=== PATIENT | female | born 1990 | race Two or more races ===

== ENCOUNTER 2021-07-06 13:13 | Emergency (ER) | payer OTHER ==
[~2021-07-06] VITALS: Ht 160 cm; Wt 54.0 kg
[2021-07-06] MEDS ORDERED: PRENA1 CHEW TA1.4 MG PO (14:02)
== END 2021-07-06 16:05 | disposition home or self-care (01) ==
LOC: ER 13:13
DX: U07.1 COVID-19 (principal)

== ENCOUNTER 2021-10-18 18:52 | Inpatient (IN) | payer OTHER ==
[~2021-10-18] VITALS: Ht 160 cm; Wt 61.2 kg
[~2021-10-18 18:52] MED LIST: PRENA1 CHEW TA1.4 MG PO
== END 2021-10-21 19:32 | disposition home or self-care (01) | DRG 807 ==
LOC: OB/GYN 18:52 → LDR 18:52 → OB/GYN 10-20 10:31
PROVIDERS: ADMIT Obstetrics & Gynecology; ATTEND Obstetrics & Gynecology
PROC: 4A1HXCZ Monitoring of Products of Conception, Cardiac Rate, External Approach (ICD-10-PCS; 2021-10-18)
PROC: 10E0XZZ Delivery of Products of Conception, External Approach (ICD-10-PCS; principal; 2021-10-19)
PROC: 0W8NXZZ Division of Female Perineum, External Approach (ICD-10-PCS; 2021-10-19)
DX: O80 Encounter for full-term uncomplicated delivery (principal); Z37.0 Single live birth; Z3A.39 39 weeks gestation of pregnancy; Z20.822 Contact with and (suspected) exposure to COVID-19

== ENCOUNTER → 2023-09-12 | Day surgery (SDC) | payer OTHER ==
[~2023-09-12] VITALS: Ht 160 cm; Wt 46.3 kg
[~2023-09-12] MED LIST changes: +KETOROLAC TROMETHAMINE 60 MG VIAL IM STA; +METHYLERGONOVINE MALEATE 0.2 MG/ML AMPUL IJ ONE; +POVIDONE-IODINE 118 ML BOTT TOP ONE; +RINGERS SOLUTION,LACTATED 1,000 ML IV SCH
--- NOTE | 2023-09-12 11:36 | NUR ---
PTE ALERTA Y ORIENTADA X3 REFIERE QUE FUE ENVIADA POR EL DR. CARLOS PARA REALIZAR RASPE. SE MIDEN S/V Y SE UBICA.
--- NOTE | 2023-09-12 11:54 | NUR ---
SE EDUCA PACIENTE SOBRE EL TX MEDICO Y ESTA REFIERE ENTENDER. SE NEERAJ MUESTRAS DE LABORATORIOS Y SE ENVIAN. SE CANALIZA Y SE COLOCA IVFS. PENDIENTE A U/A
[2023-09-12 12:03] LABS: HEMATOCRIT 39.1 % (36.0-45.00); HEMOGLOBIN 13.8 g/dL (12.0-15.00); MEAN CELL VOLUME 89.3 fL (80.00-100.00); MEAN CORPUSCULAR HEMOGLOBIN 31.5 pg (27.00-32.0); MEAN CORPUSCULAR HGB CONC 35.3 g/dl (32.0-36.0); PLATELET COUNT 248 K/uL (150-450); RED BLOOD COUNT 4.38 M/uL (4.00-6.00)
[2023-09-12 12:27] LABS: URINE APPEARANCE Cloudy; URINE BILIRRUBIN Negative (NEGATIVE); URINE BLOOD Negative; URINE COLOR Yellow; URINE GLUCOSE Negative (NEGATIVE); URINE LEUKOCYTE Small; URINE NITRATE Negative; URINE PROTEIN Negative (NEGATIVE); URINE UROBILINOGEN 0.2 E.U./dl
[2023-09-12 12:31] LABS: URINE BACTERIA 3282.2 uL (0.0-1933); URINE EPITHELIAL CELLS 59.3 uL (0.0-38.8); URINE WBC 118.5 uL (0.0-23.2)
[2023-09-12 12:52] LABS: INR 1.01; PARTIAL THROMBOPLASTIN TIME 27.9 SECONDS (22.0-34.0); PROTHROMBIN TIME 10.6 SECONDS (9.0-11.5)
== END | disposition home or self-care (01) ==
LOC: EDSTATUS 10:48 → ER 10:48 → CIR.AMB 16:41 → O/R 16:41 → ER 16:41 → CIR.AMB 16:41 → SEC-K 16:41 → O/R 17:14
PROVIDERS: Obstetrics & Gynecology; ATTEND General Practice
DX: O02.1 Missed abortion (principal)

== ENCOUNTER 2024-05-30 14:22 | Outpatient (CLI) | payer OTHER ==
[~2024-05-30 14:22] MED LIST changes: -KETOROLAC TROMETHAMINE 60 MG VIAL IM STA; -METHYLERGONOVINE MALEATE 0.2 MG/ML AMPUL IJ ONE; -POVIDONE-IODINE 118 ML BOTT TOP ONE; -RINGERS SOLUTION,LACTATED 1,000 ML IV SCH
== END 2024-05-30 14:23 | disposition home or self-care (01) ==
LOC: PRENATAL 14:22
PROVIDERS: ATTEND Obstetrics & Gynecology Maternal & Fetal Medicine
DX: O44.00 Complete placenta previa NOS or without hemorrhage, unspecified trimester (principal); Z3A.19 19 weeks gestation of pregnancy

== ENCOUNTER → 2024-08-29 12:46 | Outpatient (CLI) | payer OTHER | END | disposition home or self-care (01) | LOC: PRENATAL 12:46 | PROVIDERS: ATTEND Obstetrics & Gynecology Maternal & Fetal Medicine | DX: O26.849 Uterine size-date discrepancy, unspecified trimester (principal); O36.8199 Decreased fetal movements, unspecified trimester, other fetus; Z3A.33 33 weeks gestation of pregnancy ==

== ENCOUNTER 2024-10-01 14:36 | Outpatient (CLI) | payer OTHER ==
[~2024-10-01] VITALS: Ht 160 cm; Wt 62.6 kg
[2024-10-01 12:52] VITALS: BP 105/68
[2024-10-01] MEDS ORDERED: RINGERS SOLUTION,LACTATED 1,000 ML IV SCH (15:00)
[2024-10-01] MEDS ORDERED: PRENATA CHEWAB1 EACH PO (15:13)
[2024-10-01] MEDS ORDERED: FOLIC ACID0.8 M1 PO (15:14)
[2024-10-01 15:32] LABS: URINE APPEARANCE Cloudy; URINE BILIRRUBIN Negative (NEGATIVE); URINE BLOOD Negative; URINE COLOR Yellow; URINE GLUCOSE Negative (NEGATIVE); URINE KETONE Negative (NEGATIVE); URINE LEUKOCYTE Large; URINE NITRATE Negative; URINE PROTEIN Negative (NEGATIVE); URINE UROBILINOGEN 1.0 E.U./dl
[2024-10-01 15:33] LABS: BASO % 0.4 % (0.1-1.2); EOS # 0.02 (0.04-0.54); EOS % 0.2 % (0.7-7.0); LYMPH # 1.39 (1.18-3.74); LYMPH % 15.3 % (19.3-53.1); MEAN PLATELET VOLUME 11.30 fl (9.4-12.4); MONO # 0.48 (0.24-0.82); MONO % 5.3 % (4.7-12.5); NEUT # 7.09 (1.56-6.13); NEUT % 78.0 % (34.0-71.1); RED CELL DISTRIBUTION WIDTH 13.5 % (11.6-14.4)
[2024-10-01 15:35] LABS: URINE BACTERIA 2259.4 uL (0.0-1933); URINE CAST 1.61 uL (0.0-1.40); URINE EPITHELIAL CELLS 147.2 uL (0.0-38.8); URINE WBC 398.5 uL (0.0-23.2)
[2024-10-01 15:53] LABS: TYPE CELLS SQUAMOUS; URINE MUCUS SCANT; URINE RBC 1.6 uL (0.0-20.8)
[2024-10-01] MEDS ORDERED: CEFAZOLIN SODIUM 1,000 MG VIAL IV ONE (16:25)
[2024-10-01 16:49] VITALS: BP 106/67
[2024-10-01] MEDS ORDERED: CEFAZOLIN SODIUM 1,000 MG VIAL ONE (16:58)
[2024-10-01 19:35] VITALS: BP 98/60
[2024-10-01 21:30] VITALS: BP 98/60
== END 2024-10-01 21:30 | disposition home or self-care (01) ==
LOC: OBS/DEL 14:36
PROVIDERS: ATTEND Obstetrics & Gynecology
DX: O36.8130 Decreased fetal movements, third trimester, not applicable or unspecified (principal); O26.849 Uterine size-date discrepancy, unspecified trimester; O36.8199 Decreased fetal movements, unspecified trimester, other fetus; Z3A.36 36 weeks gestation of pregnancy

== ENCOUNTER 2024-10-15 07:22 | Inpatient (IN) | payer OTHER ==
[~2024-10-15] VITALS: Ht 160 cm; Wt 3.2 kg
[~2024-10-15 07:22] MED LIST changes: +FOLIC ACID0.8 M1 PO; +PRENATA CHEWAB1 EACH PO
[2024-10-15 07:42] VITALS: BP 122/78; O2SAT 100
[2024-10-15] MEDS ORDERED: RINGERS SOLUTION,LACTATED 1,000 ML IV SCH ×2 (08:15→21:00)
[2024-10-15 08:50] LABS: URINE APPEARANCE Cloudy; URINE BILIRRUBIN Negative (NEGATIVE); URINE BLOOD Moderate; URINE COLOR Dark Yellow; URINE GLUCOSE Negative (NEGATIVE); URINE KETONE Trace (NEGATIVE); URINE LEUKOCYTE Moderate; URINE NITRATE Negative; URINE PROTEIN Trace (NEGATIVE); URINE UROBILINOGEN 1.0 E.U./dl
[2024-10-15 08:52] LABS: BASO % 0.4 % (0.1-1.2); EOS # 0.01 (0.04-0.54); EOS % 0.1 % (0.7-7.0); LYMPH # 1.59 (1.18-3.74); LYMPH % 17.5 % (19.3-53.1); MEAN PLATELET VOLUME 12.10 fl (9.4-12.4); MONO # 0.47 (0.24-0.82); MONO % 5.2 % (4.7-12.5); NEUT # 6.89 (1.56-6.13); NEUT % 76.0 % (34.0-71.1); RED CELL DISTRIBUTION WIDTH 13.5 % (11.6-14.4)
[2024-10-15 08:54] LABS: URINE BACTERIA 5320.8 uL (0.0-1933); URINE EPITHELIAL CELLS 122.7 uL (0.0-38.8); URINE WBC 165.2 uL (0.0-23.2)
[2024-10-15 09:18] LABS: INR 0.95
[2024-10-15 09:34] LABS: TYPE CELLS SQUAMOUS; URINE CAST 0.58 uL (0.0-1.40); URINE RBC 1.7 uL (0.0-20.8)
[2024-10-15 11:26] VITALS: BP 98/61; O2SAT 98
[2024-10-15] MEDS ORDERED: OXYTOCIN 20 UNITS/500ML RL PIGGYBAG IV SCH (11:45)
[2024-10-15] MEDS ORDERED: OXYTOCIN 10 UNITS/ML VIAL ONE ×2 (11:56→18:07)
[2024-10-15] MEDS ORDERED: ERYTHROMYCIN BASE OPHT 1GM EACH TUBE OP ONE ×3 (13:24→19:45)
[2024-10-15] MEDS ORDERED: CHLORHEXIDINE GLUCONATE 120 ML BOTTLE TOP ONE ×2 (13:24→21:00)
[2024-10-15] MEDS ORDERED: OXYTOCIN 20 UNITS/1000ML RL PIGGYBAG IV ONE (13:24)
[2024-10-15] MEDS ORDERED: LIDOCAINE HCL 1% 10ML VIAL ONE (13:24)
[2024-10-15 15:17] VITALS: BP 118/65
[2024-10-15] MEDS ORDERED: TERBUTALINE SULFATE 1 MG/ML AMPUL ONE (17:50)
[2024-10-15] MEDS ORDERED: CEFOXITIN SODIUM 2,000 MG VIAL IV ONE ×2 (18:48→19:45)
[2024-10-15 18:56] LABS: ABG PH 7.249 (7.35-7.45); ABG PO2 26.1 mmHg (80-100)
[2024-10-15 18:57] LABS: BICARBONATE 21.4 mmol/l (23-25); o2 21 %
[2024-10-15] MEDS ORDERED: OXYTOCIN 10 UNITS/ML VIAL IV ONE (19:45)
[2024-10-15] MEDS ORDERED: KETOROLAC TROMETHAMINE 60 MG VIAL IM STA (20:49)
[2024-10-15] MEDS ORDERED: MORPHINE SULFATE 4 MG/ML VIAL IV ONE (20:55)
[2024-10-15] MEDS ORDERED: MORPHINE SULFATE 4 MG/ML VIAL IV PRN (21:00)
[2024-10-15] MEDS ORDERED: OXYTOCIN 1,000 ML IV SCH (21:00)
[2024-10-15 22:09] VITALS: BP 112/67
[2024-10-15 22:30] LABS: BASO % 0.2 % (0.1-1.2); EOS # 0.00 (0.04-0.54); EOS % 0.0 % (0.7-7.0); LYMPH # 0.78 (1.18-3.74); LYMPH % 6.0 % (19.3-53.1); MEAN PLATELET VOLUME 12.00 fl (9.4-12.4); MONO # 0.77 (0.24-0.82); MONO % 5.9 % (4.7-12.5); NEUT # 11.34 (1.56-6.13); NEUT % 87.4 % (34.0-71.1); RED CELL DISTRIBUTION WIDTH 13.5 % (11.6-14.4)
[2024-10-16] VITALS: BP 110/69
[2024-10-16] MEDS ORDERED: OxyCODONE HCL 5 MG TABLET (ROXICODONE) PO PRN (09:00)
[2024-10-16] MEDS ORDERED: ACETAMINOPHEN 325 MG TABLET PO PRN (09:00)
[2024-10-16 09:27] VITALS: BP 115/71
[2024-10-16 16:06] VITALS: BP 90/57
[2024-10-16] MEDS ORDERED: BISACODYL 10 MG/SUPP.RECT SUPP.RECT RECTAL STA (16:06)
[2024-10-16] MEDS ORDERED: FERROUS SULFATE 325 MG TABLET.EC PO SCH (17:00)
[2024-10-17 00:29] VITALS: BP 101/61
[2024-10-17 08:50] VITALS: BP 97/66
[2024-10-17 16:23] VITALS: BP 106/69
[2024-10-18 00:03] VITALS: BP 102/66
[2024-10-18 04:00] VITALS: BP 107/67
[2024-10-18 08:02] VITALS: BP 105/70
== END 2024-10-18 16:53 | disposition home or self-care (01) | DRG 788 ==
LOC: O/R 07:22 → LDR 07:22 → O/R 10:16 → LDR 10:17 → O/R 18:27 → OB/GYN 19:28
PROVIDERS: ADMIT Obstetrics & Gynecology; ATTEND Obstetrics & Gynecology
PROC: 4A1HXCZ Monitoring of Products of Conception, Cardiac Rate, External Approach (ICD-10-PCS; 2024-10-15)
PROC: 10D00Z1 Extraction of Products of Conception, Low, Open Approach (ICD-10-PCS; principal; 2024-10-15 19:00)
DX: O36.8330 Maternal care for abnormalities of the fetal heart rate or rhythm, third trimester, not applicable or unspecified (principal); O76 Abnormality in fetal heart rate and rhythm complicating labor and delivery; O69.89X0 Labor and delivery complicated by other cord complications, not applicable or unspecified; Z3A.39 39 weeks gestation of pregnancy; Z37.0 Single live birth